=== PATIENT | male | born 1960 | race Asian ===

== ENCOUNTER 2023-06-15 07:07 | Day surgery (SDC) | payer MEDICAID ==
[~2023-06-15] VITALS: Ht 170.2 cm; Wt 64.9 kg
[2023-06-15] MEDS ORDERED: fentaNYL CITRATE/PF 100 MCG/2 ML AMP ONE (07:20)
[2023-06-15] MEDS ORDERED: MIDAZOLAM HCL 5 MG/5 ML VIAL ONE (07:20)
[2023-06-15 13:39] VITALS: BP_SYST 111; PULSE 67; RESP 18; TEMP 97; O2SAT 100
== END 2023-06-15 10:10 | disposition home or self-care (01) ==
LOC: SDS 07:07 → SMU 07:09 → SDS 10:10
PROVIDERS: ATTEND Internal Medicine
DX: Z12.11 Encounter for screening for malignant neoplasm of colon (principal); D12.5 Benign neoplasm of sigmoid colon; D12.4 Benign neoplasm of descending colon; K64.8 Other hemorrhoids; E11.9 Type 2 diabetes mellitus without complications; E78.00 Pure hypercholesterolemia, unspecified; F17.210 Nicotine dependence, cigarettes, uncomplicated; Z98.890 Other specified postprocedural states; Z79.84 Long term (current) use of oral hypoglycemic drugs; Z79.899 Other long term (current) drug therapy; Z86.010 Personal history of colon polyps
CPT/HCPCS: 45385; 45380; 99152; 82948; 88305; G0378; J2250; J3010